=== PATIENT | female | born 1945 | race Caucasian/White ===

== ENCOUNTER → 2016-05-26 | Outpatient (CLI) | payer MEDICARE, MEDICAID ==
[~2016-05-26] MED LIST: ASPIRIN E.C. 8181 MG PO; CEPHALEXIN500 M1 PO; DEPAKOTE ER 25250 MG PO; DULCOLAX S10 MG/SUPP RC; ELDEPRYL 5MG5 MG/CAP PO; LAMICTAL 100MG100 MG PO; LIPITOR 40MG TA40 MG PO; LIQUIFILM TEARS15 ML OU; LORAINT PO; MIRALAX PA17 GM/Dose PO; NEOSPORIN1 OIN OP; NEURONTIN300 MG/CAP PO; PRILOSEC 20MG20 MG PO; REQUIP4 MG PO; ROXANOL 20MG20 MG/ML PO; RT ALBUTER2.5 MG/0.5 IH; SEROQUEL 1100 MG/TAB PO; SINEMET 25/101 UDTAB PO; TRIAM OI 15 0.025 TOP; ZOFRAN ODT8 MG PO
== END ==
LOC: ZLAB.STJ 09:38
PROVIDERS: Internal Medicine
DX: E78.4 Other hyperlipidemia (principal)

== ENCOUNTER 2016-05-27 23:12 | Inpatient (IN) | payer MEDICARE, BC, MEDICAID ==
[~2016-05-27] VITALS: Ht 157.5 cm; Wt 61.6 kg
[~2016-05-27 23:12] MED LIST changes: -DULCOLAX S10 MG/SUPP RC; -LORAINT PO; -ROXANOL 20MG20 MG/ML PO; -RT ALBUTER2.5 MG/0.5 IH; -ZOFRAN ODT8 MG PO
[2016-05-28] VITALS (12 sets, daily range): BP systolic 83–104; BP diastolic 45–85; PULSE 95–124; TEMP 97.7–98.4
[2016-05-28 00:01] LABS: HEMOGLOBIN 17.7 g/dl (12.5-16.0); MEAN CELL VOLUME 86 fl (80.0-100.0); MEAN CORPUSCULAR HEMOGLOBIN 28 pg (27.0-31.0); MEAN CORPUSCULAR HGB CONC 32 g/dl (33.0-37.0); PLATELET COUNT 294 K/mm3 (130-400); RED BLOOD COUNT 6.42 M/mm3 (4.10-5.30); REDCELL DISTRIBUTION WIDTH-CV 18.4 % (11.5-14.5); WHITE BLOOD COUNT 13.9 K/mm3 (4.8-10.8)
[2016-05-28 00:02] LABS: ADD PATHOLOGY DIFF REVIEW NO; HEMATOCRIT 54.9 % (37.0-47.0)
[2016-05-28 00:18] LABS: PH 7 (5-8); SQUAMOUS EPITHELIAL None Seen /hpf; URINE APPEARANCE Cloudy; URINE BACTERIA Rare /hpf; URINE BILIRUBIN Negative (NEGATIVE); URINE BLOOD Negative (NEGATIVE); URINE COLOR Yellow; URINE GLUCOSE Negative (NEGATIVE); URINE KETONE Trace (NEGATIVE); URINE RBC 0-2 /hpf; URINE UROBILINOGEN Negative (NEGATIVE); URINE WBC 0-2 /hpf
[2016-05-28 00:19] LABS: ADJUSTED CALCIUM 11.3 mg/dL (8.4-10.2); ALANINE AMINOTRANSFERASE 15 U/L (9-52); ALBUMIN 3.8 gm/dL (3.5-5.0); ALKALINE PHOSPHATASE 81 U/L (50-136); ANION GAP 24 mmol/L (7-16); BLOOD UREA NITROGEN 21 mg/dL (7-17); CALCIUM 11.1 mg/dL (8.4-10.2); CARBON DIOXIDE 15 mmol/L (22-30); CHLORIDE 98 mmol/L (98-107); CREATINE KINASE 40 U/L (30-135); CREATININE, serum 1.29 mg/dL (0.52-1.25); GLUCOSE 213 mg/dL (74-106); POTASSIUM 5.2 mmol/L (3.4-5.0); SODIUM 137 mmol/L (137-145); TOTAL PROTEIN 7.1 gm/dL (6.4-8.2)
[2016-05-28 00:30] LABS: B-TYPE NATRIURETIC PEPTIDE 411 pg/mL (0-125)
[2016-05-28 00:35] LABS: TROPONIN-I < 0.012 ng/mL (0.000-0.034)
[2016-05-28 00:55] LABS: ANISOCYTOSIS 1+; BAND 60 % (0-10); NEUTROPHILS 26 % (42.0-75.2); PLATELET ESTIMATE NORMAL (NORMAL); TOTAL CELLS COUNTED 100
[2016-05-28] MEDS ORDERED: ZOFRAN ODT8 MG PO (12:03)
[2016-05-28] MEDS ORDERED: RT ALBUTER2.5 MG/0.5 IH (12:08)
[2016-05-28] MEDS ORDERED: DULCOLAX S10 MG/SUPP RC (12:10)
[2016-05-28] MEDS ORDERED: LORAINT PO (12:11)
[2016-05-28] MEDS ORDERED: ROXANOL 20MG20 MG/ML PO (12:11)
[2016-05-28 12:47] LABS: HEMATOCRIT 44.7 % (37.0-47.0); MEAN CELL VOLUME 88 fl (80.0-100.0); MEAN CORPUSCULAR HEMOGLOBIN 27 pg (27.0-31.0); MEAN CORPUSCULAR HGB CONC 31 g/dl (33.0-37.0); MEAN PLATELET VOLUME 10.8 fl (7.4-10.4); PLATELET COUNT 197 K/mm3 (130-400); RED BLOOD COUNT 5.07 M/mm3 (4.10-5.30); REDCELL DISTRIBUTION WIDTH-CV 17.5 % (11.5-14.5); WHITE BLOOD COUNT 13.7 K/mm3 (4.8-10.8)
[2016-05-28 12:54] LABS: HEMOGLOBIN 13.8 g/dl (12.5-16.0)
[2016-05-28 12:55] LABS: ADD PATHOLOGY DIFF REVIEW NO
[2016-05-28 12:58] LABS: CALCIUM 8.8 mg/dL (8.4-10.2); CREATININE, serum 1.3 mg/dL (0.52-1.25); POTASSIUM 5.1 mmol/L (3.4-5.0)
[2016-05-28 15:31] LABS: BAND 59 % (0-10); EOSINOPHIL 1 % (0-4); METAMYELOCYTE 5 % (0-0); MYELOCYTE 1 % (0-0); PLATELET ESTIMATE NORMAL (NORMAL); TOTAL CELLS COUNTED 100
[2016-05-28 15:32] LABS: ANISOCYTOSIS 1+
[2016-05-28 15:33] LABS: NEUTROPHILS 18 % (42.0-75.2)
== END 2016-05-28 14:59 | disposition hospice, home (50) | DRG 871 ==
LOC: COL.ER 23:12 → MEDICAL 05-28 01:06
PROVIDERS: Emergency Medicine; Internal Medicine
PROC: 0D9670Z Drainage of Stomach with Drainage Device, Via Natural or Artificial Opening (ICD-10-PCS; principal; 2016-05-28)
DX: A41.9 Sepsis, unspecified organism (principal); J69.0 Pneumonitis due to inhalation of food and vomit; J96.01 Acute respiratory failure with hypoxia; K56.7 Ileus, unspecified; Z66 Do not resuscitate; F01.50 Vascular dementia, unspecified severity, without behavioral disturbance, psychotic disturbance, mood disturbance, and anxiety; Z51.5 Encounter for palliative care; I69.922 Dysarthria following unspecified cerebrovascular disease; I69.991 Dysphagia following unspecified cerebrovascular disease; R13.10 Dysphagia, unspecified; G20 Parkinson's disease; G25.81 Restless legs syndrome
CPT/HCPCS: 99223-AI; 99239; J2405; J2543; J3370; J7030; J7050

== ENCOUNTER → 2016-08-25 | Outpatient (CLI) | payer MEDICARE, BC, MEDICAID ==
[~2016-08-25] MED LIST changes: +DULCOLAX S10 MG/SUPP RC; +LORAINT PO; +ROXANOL 20MG20 MG/ML PO; +RT ALBUTER2.5 MG/0.5 IH; +ZOFRAN ODT8 MG PO
[2016-08-25 13:21] LABS: BASO % 0.4 % (0.0-2.0); EOS # 0.2 (0.0-0.7); EOS % 2.2 % (0-4.0); GRAN # 4.3 (1.4-6.5); GRAN % 59.8 % (42.2-75.2); HEMATOCRIT 42.6 % (37.0-47.0); HEMOGLOBIN 12.9 g/dl (12.5-16.0); LYMPH # 2.1 (1.2-3.4); LYMPH % 29.9 % (20.0-51.0); MEAN CELL VOLUME 86 fl (80.0-100.0); MEAN CORPUSCULAR HEMOGLOBIN 26 pg (27.0-31.0); MEAN CORPUSCULAR HGB CONC 30 g/dl (33.0-37.0); MEAN PLATELET VOLUME 11.2 fl (7.4-10.4); MONO # 0.5 (0.1-0.6); MONO % 7.4 % (1.7-9.3); PLATELET COUNT 260 K/mm3 (130-400); RED BLOOD COUNT 4.98 M/mm3 (4.10-5.30); REDCELL DISTRIBUTION WIDTH-CV 15.2 % (11.5-14.5); WHITE BLOOD COUNT 7.2 K/mm3 (4.8-10.8)
== END ==
LOC: ZLAB.STJ 12:47
PROVIDERS: Internal Medicine
DX: E78.4 Other hyperlipidemia (principal); Z02.89 Encounter for other administrative examinations

== ENCOUNTER → 2016-08-26 | Outpatient (CLI) | payer MEDICARE, BC, MEDICAID ==
[2016-08-26 12:36] LABS: ADJUSTED CALCIUM 10.2 mg/dL (8.4-10.2); ALBUMIN 3.4 gm/dL (3.5-5.0); BILIRUBIN,TOTAL 0.6 mg/dL (0.0-1.0); CALCIUM 9.7 mg/dL (8.4-10.2); CREATININE, serum 0.68 mg/dL (0.52-1.25); POTASSIUM 4.6 mmol/L (3.4-5.0); TOTAL PROTEIN 6.3 gm/dL (6.4-8.2)
[2016-08-26 13:07] LABS: THYROID STIMULATING HORMONE 2.55 uIU/mL (0.465-4.680)
== END ==
LOC: ZCOL.LAB 11:35
PROVIDERS: Internal Medicine
DX: R27.8 Other lack of coordination (principal); Z02.89 Encounter for other administrative examinations

== ENCOUNTER → 2016-12-29 | Outpatient (REF) ==
[2016-12-29 14:07] LABS: PH 6 (5-8); SQUAMOUS EPITHELIAL None Seen /hpf; URINE APPEARANCE Clear; URINE BACTERIA Rare /hpf; URINE BILIRUBIN Negative (NEGATIVE); URINE BLOOD Negative (NEGATIVE); URINE COLOR Yellow; URINE GLUCOSE Negative (NEGATIVE); URINE KETONE Negative (NEGATIVE); URINE RBC 0-2 /hpf; URINE UROBILINOGEN Negative (NEGATIVE)
== END ==
LOC: ZLAB.STJ 13:49
PROVIDERS: Internal Medicine
DX: Z02.89 Encounter for other administrative examinations (principal)

== ENCOUNTER → 2017-08-30 | Outpatient (CLI) | payer MEDICARE, BC, MEDICAID ==
[2017-08-30 14:28] LABS: CREATININE, serum 0.65 mg/dL (0.52-1.25)
== END ==
LOC: ZLAB.STJ 14:06
PROVIDERS: Internal Medicine
DX: R79.89 Other specified abnormal findings of blood chemistry (principal)

== ENCOUNTER → 2017-11-08 | Outpatient (CLI) | payer MEDICARE, BC, MEDICAID | LOC: ZLAB.STJ 09:46 | DX: E78.4 Other hyperlipidemia (principal) ==

== ENCOUNTER → 2017-11-12 | Outpatient (CLI) | payer MEDICARE, BC, MEDICAID ==
[2017-11-12 10:18] LABS: CHOLESTEROL RISK RATIO 4.8
== END ==
LOC: ZLAB.STJ 09:54
PROVIDERS: Internal Medicine
DX: I10 Essential (primary) hypertension (principal)

== ENCOUNTER → 2018-04-05 | Outpatient (CLI) | payer MEDICARE, BC, MEDICAID ==
[2018-04-05 16:23] LABS: CALCIUM 9.6 mg/dL (8.4-10.2); CREATININE, serum 0.7 mg/dL (0.52-1.25); POTASSIUM 4.7 mmol/L (3.4-5.0)
== END ==
LOC: ZCOL.LAB 15:50 → ZLAB.STJ 15:50
PROVIDERS: Internal Medicine
DX: R79.89 Other specified abnormal findings of blood chemistry (principal)

== ENCOUNTER → 2018-05-20 | Outpatient (CLI) | payer MEDICARE, BC, MEDICAID ==
[2018-05-20 13:21] LABS: CHOLESTEROL RISK RATIO 5.3
== END ==
LOC: ZLAB.STJ 11:13
PROVIDERS: Internal Medicine
DX: E78.5 Hyperlipidemia, unspecified (principal)

== ENCOUNTER → 2018-10-04 | Outpatient (CLI) | payer MEDICARE, BC ==
[2018-10-04 14:55] LABS: CALCIUM 9.7 mg/dL (8.4-10.2); CREATININE, serum 0.66 (0.52-1.25)
== END ==
LOC: ZLAB.STJ 11:51
PROVIDERS: Internal Medicine
DX: K21.0 Gastro-esophageal reflux disease with esophagitis (principal)

== ENCOUNTER → 2018-10-05 | Outpatient (CLI) | payer MEDICARE, BC | LOC: COL.RAD 11:13 | DX: R09.89 Other specified symptoms and signs involving the circulatory and respiratory systems (principal); R50.9 Fever, unspecified; R05 Cough ==

== ENCOUNTER → 2018-11-15 | Outpatient (CLI) | payer MEDICARE, BC ==
[2018-11-15 17:59] LABS: COLLECTION METHOD CLEAN CATCH
[2018-11-15 18:21] LABS: MUCOUS Present /lpf; PH 5 (5-8); URINE APPEARANCE Cloudy; URINE BACTERIA Many /hpf; URINE BILIRUBIN Negative (NEGATIVE); URINE BLOOD 1+ (NEGATIVE); URINE COLOR Yellow; URINE GLUCOSE Negative (NEGATIVE); URINE KETONE Trace (NEGATIVE); URINE LEUKOCYTE ESTERASE 3+ (NEGATIVE); URINE NITRATE Positive (NEGATIVE); URINE PROTEIN(semi-quant) Negative (NEGATIVE); URINE RBC 20-50 /hpf; URINE UROBILINOGEN Negative (NEGATIVE); URINE WBC >50 /hpf
== END ==
LOC: ZLAB.STJ 14:55
PROVIDERS: Nurse Practitioner
DX: F98.9 Unspecified behavioral and emotional disorders with onset usually occurring in childhood and adolescence (principal)

== ENCOUNTER → 2018-11-20 | Outpatient (CLI) | payer MEDICARE, BC | LOC: ZLAB.STJ 09:26 | DX: N39.0 Urinary tract infection, site not specified (principal) ==

== ENCOUNTER → 2019-02-16 | Outpatient (CLI) | payer MEDICARE, BC ==
[2019-02-16 10:01] LABS: COLLECTION METHOD CLEAN CATCH
[2019-02-16 10:16] LABS: MUCOUS Present /lpf; PH 5 (5-8); URINE APPEARANCE Cloudy; URINE BACTERIA Rare /hpf; URINE BILIRUBIN Negative (NEGATIVE); URINE BLOOD 1+ (NEGATIVE); URINE COLOR Yellow; URINE GLUCOSE Negative (NEGATIVE); URINE KETONE Trace (NEGATIVE); URINE LEUKOCYTE ESTERASE 2+ (NEGATIVE); URINE NITRATE Positive (NEGATIVE); URINE PROTEIN(semi-quant) Negative (NEGATIVE); URINE UROBILINOGEN Negative (NEGATIVE)
== END ==
LOC: ZCOL.LAB 09:46
PROVIDERS: Internal Medicine
DX: N39.0 Urinary tract infection, site not specified (principal)

== ENCOUNTER → 2019-03-02 | Outpatient (CLI) | payer MEDICARE, BC ==
[2019-03-02 12:24] LABS: COLLECTION METHOD CLEAN CATCH
[2019-03-02 13:08] LABS: MUCOUS Present /lpf; PH 6 (5-8); SQUAMOUS EPITHELIAL None Seen /hpf; URINE APPEARANCE Clear; URINE BACTERIA Rare /hpf; URINE BILIRUBIN Negative (NEGATIVE); URINE BLOOD Negative (NEGATIVE); URINE COLOR Yellow; URINE GLUCOSE Negative (NEGATIVE); URINE KETONE Negative (NEGATIVE); URINE LEUKOCYTE ESTERASE Negative (NEGATIVE); URINE NITRATE Negative (NEGATIVE); URINE PROTEIN(semi-quant) Negative (NEGATIVE); URINE RBC 0-2 /hpf; URINE UROBILINOGEN Negative (NEGATIVE)
== END ==
LOC: ZCOL.LAB 10:26 → ZLAB.STJ 10:26
PROVIDERS: Internal Medicine
DX: N39.0 Urinary tract infection, site not specified (principal)

== ENCOUNTER → 2019-04-25 | Outpatient (CLI) | payer MEDICARE, BC ==
[2019-04-25 18:14] LABS: COLLECTION METHOD CLEAN CATCH
[2019-04-25 18:51] LABS: MUCOUS Present /lpf; PH 7 (5-8); SQUAMOUS EPITHELIAL 20-50 /hpf; URINE APPEARANCE Cloudy; URINE BACTERIA Rare /hpf; URINE BILIRUBIN Negative (NEGATIVE); URINE BLOOD 1+ (NEGATIVE); URINE COLOR Yellow; URINE GLUCOSE Negative (NEGATIVE); URINE KETONE Negative (NEGATIVE); URINE LEUKOCYTE ESTERASE 3+ (NEGATIVE); URINE NITRATE Positive (NEGATIVE); URINE PROTEIN(semi-quant) Negative (NEGATIVE); URINE UROBILINOGEN Negative (NEGATIVE)
== END ==
LOC: ZLAB.STJ 13:54
PROVIDERS: Internal Medicine
DX: N39.0 Urinary tract infection, site not specified (principal)

== ENCOUNTER → 2019-04-27 | Outpatient (CLI) | payer MEDICARE, BC ==
[2019-04-27 12:53] LABS: COLLECTION METHOD CLEAN CATCH
== END ==
LOC: ZLAB.STJ 10:47
PROVIDERS: Internal Medicine
DX: R82.90 Unspecified abnormal findings in urine (principal)

== ENCOUNTER → 2019-05-18 | Outpatient (CLI) | payer MEDICARE, BC ==
[2019-05-18 17:55] LABS: HEMATOCRIT 45.3 % (37.0-47.0); HEMOGLOBIN 13.6 g/dl (12.5-16.0); MEAN CELL VOLUME 89 fl (80.0-100.0); MEAN CORPUSCULAR HEMOGLOBIN 27 pg (27.0-31.0); MEAN CORPUSCULAR HGB CONC 30 g/dl (33.0-37.0); MEAN PLATELET VOLUME 12.2 fl (7.4-10.4); PLATELET COUNT 180 K/mm3 (130-400); RED BLOOD COUNT 5.11 M/mm3 (4.10-5.30)
[2019-05-18 18:50] LABS: ALBUMIN 3.7 gm/dL (3.5-5.0); BILIRUBIN,TOTAL 0.4 mg/dL (0.0-1.0); CALCIUM 9.7 mg/dL (8.4-10.2); CREATININE, serum 0.69 (0.52-1.25); POTASSIUM 4.9 mmol/L (3.4-5.0); TOTAL PROTEIN 6.7 gm/dL (6.4-8.2)
[2019-05-18 19:20] LABS: THYROID STIMULATING HORMONE 0.88 uIU/mL (0.465-4.680)
[2019-05-19 00:01] LABS: BASO % 0.3 % (0.0-2.0); EOS # 0.2 (0.0-0.7); EOS % 2.1 % (0-4.0); GRAN % 71.1 % (42.2-75.2); LYMPH # 1.4 (1.2-3.4); LYMPH % 19.5 % (20.0-51.0); MONO # 0.5 (0.1-0.6); MONO % 6.7 % (1.7-9.3)
== END ==
LOC: ZLAB.STJ 13:59
PROVIDERS: Internal Medicine
DX: M62.81 Muscle weakness (generalized) (principal); R47.1 Dysarthria and anarthria

== ENCOUNTER → 2019-09-26 | Outpatient (CLI) | payer MEDICARE, BC | LOC: COL.RAD 13:11 | DX: G20 Parkinson's disease (principal); G31.9 Degenerative disease of nervous system, unspecified; I63.9 Cerebral infarction, unspecified; F01.51 Vascular dementia, unspecified severity, with behavioral disturbance ==

== ENCOUNTER → 2019-10-18 | Outpatient (CLI) | payer MEDICARE, BC | LOC: ZLAB.STJ 16:01 | DX: Z20.828 Contact with and (suspected) exposure to other viral communicable diseases (principal); Z01.84 Encounter for antibody response examination ==

== ENCOUNTER → 2019-12-14 | Outpatient (CLI) | payer MEDICARE, BC ==
[2019-12-14 12:22] LABS: COLLECTION METHOD CATHETER
[2019-12-14 12:32] LABS: MUCOUS Present /lpf; PH 6 (5-8); SQUAMOUS EPITHELIAL None Seen /hpf; URINE APPEARANCE Clear; URINE BACTERIA Rare /hpf; URINE BILIRUBIN Negative (NEGATIVE); URINE BLOOD Negative (NEGATIVE); URINE COLOR Yellow; URINE GLUCOSE Negative (NEGATIVE); URINE KETONE Trace (NEGATIVE); URINE LEUKOCYTE ESTERASE 3+ (NEGATIVE); URINE NITRATE Positive (NEGATIVE); URINE PROTEIN(semi-quant) Negative (NEGATIVE); URINE RBC 0-2 /hpf; URINE UROBILINOGEN Negative (NEGATIVE)
== END ==
LOC: ZLAB.STJ 12:18
PROVIDERS: Internal Medicine
DX: N19 Unspecified kidney failure (principal)

== ENCOUNTER → 2020-01-19 | Outpatient (CLI) | payer MEDICARE, BC | LOC: COL.RAD 01-11 13:30 | DX: G20 Parkinson's disease (principal); F02.80 Dementia in other diseases classified elsewhere, unspecified severity, without behavioral disturbance, psychotic disturbance, mood disturbance, and anxiety ==